=== PATIENT | female | born 1980 | race Caucasian/White ===

== ENCOUNTER 2019-04-01 22:40 | Inpatient (IN) | payer OTHER ==
[2019-04-01 23:27] LABS: ADD MAN DIFF? NO
[2019-04-01 23:28] LABS: BASOPHIL # 0.1 10^3/ul (0.0-0.1); BASOPHILS % 0.9 % (0.0-2.0); EOSINOPHILS # 0.1 10^3/ul (0.0-0.5); EOSINOPHILS % 1.9 % (0.0-7.0); HEMATOCRIT 40.9 % (37.0-47.0); HEMOGLOBIN 13.4 g/dl (12.0-16.0); LYMPHOCYTES # 1.5 10^3/ul (0.8-2.9); LYMPHOCYTES % 21.2 % (15.0-51.0); MEAN CORPUSCULAR HEMOGLOBIN 29.3 pg (29.0-33.0); MEAN CORPUSCULAR HGB CONC 32.8 g/dl (32.0-37.0); MEAN CORPUSCULAR VOLUME 89.3 fl (82.0-101.0); MEAN PLATELET VOLUME 8.9 fl (7.4-10.4); MONOCYTE # 0.7 10^3/ul (0.3-0.9); MONOCYTES % 10.7 % (0.0-11.0); NEUTROPHIL # 4.5 10^3/ul (1.6-7.5); NEUTROPHILS % 65.2 % (39.0-77.0); PLATELET COUNT 346 10^3/UL (140-415); RED BLOOD COUNT 4.58 10^6/ul (4.20-5.40); RED CELL DISTRIBUTION WIDTH 12.8 % (11.5-14.5)
[2019-04-01 23:28] LABS: WHITE BLOOD COUNT 6.9 10^3/ul (4.8-10.8)
[2019-04-01] MEDS: HYDROmorphONE 1 MG/ML SYG IV (23:29)
[2019-04-01] MEDS: ONDANSETRON 4 MG INJ IV (23:29)
[2019-04-01] MEDS: SOD CHLORIDE 0.9% 1,000 ML IV (23:29)
[2019-04-01 23:47] LABS: ALANINE AMINOTRANSFERASE 32 IU/L (13-69); ALKALINE PHOSPHATASE 75 IU/L (42-121); ANION GAP 8 (5-13); ASPARTATE AMINO TRANSFERASE 39 IU/L (15-46); BILIRUBIN,TOTAL 0.2 mg/dl (0.2-1.3); BLOOD UREA NITROGEN 20 mg/dl (7-20); CALCIUM 9.4 mg/dl (8.4-10.2); CARBON DIOXIDE 25 mmol/L (21-31); CHLORIDE 109 mmol/L (97-110); CREATININE 0.57 mg/dl (0.44-1.00); Estimated GFR > 60 mL/min (>60); GLUCOSE 93 mg/dl (70-220); LIPASE 128 U/L (23-300); POTASSIUM 4.4 mmol/L (3.5-5.1); SODIUM 142 mmol/L (135-144)
[2019-04-01 23:48] LABS: ALBUMIN 4.1 g/dl (3.3-4.9); ALBUMIN/GLOBULIN RATIO 1.17; BILIRUBIN,INDIRECT 0.2 mg/dl (0-1.1); TOTAL PROTEIN 7.6 g/dl (6.1-8.1)
[2019-04-01 23:49] LABS: ADD UMIC NO; INR 0.89; PROTIME 12.2 Sec (11.9-14.9); UR ASCORBIC ACID NEGATIVE (NEGATIVE); UR BILIRUBIN (Dip) NEGATIVE (NEGATIVE); UR BLOOD (Dip) NEGATIVE (NEGATIVE); UR CLARITY CLEAR (CLEAR); UR COLOR YELLOW (YELLOW); UR GLUCOSE (Dip) NEGATIVE (NEGATIVE); UR KETONES (Dip) NEGATIVE (NEGATIVE); UR LEUKOCYTE ESTERASE (Dip) NEGATIVE Leu/ul (NEGATIVE); UR NITRITE (Dip) NEGATIVE (NEGATIVE); UR SPECIFIC GRAVITY (Dip) 1.017 (1.003-1.030); UR TOTAL PROTEIN (Dip) NEGATIVE (NEGATIVE); UR UROBILINOGEN (Dip) NEGATIVE (NEGATIVE)
[2019-04-01 23:50] LABS: PARTIAL THROMBOPLASTIN TIME 29.3 Sec (23.0-35.0)
[2019-04-01 23:59] LABS: TROPONIN-I < 0.012 ng/ml (0.000-0.120)
[2019-04-02] MEDS: KETOROLAC 15 MG INJ IV ×2 (01:58→04:14)
[2019-04-02] MEDS ORDERED: HYDROCODONE/APAP (5/325) TAB PO (03:30)
[2019-04-02] MEDS ORDERED: ACETAMINOPHEN 325 MG TAB PO (04:00)
[2019-04-02] MEDS ORDERED: PIPER-TAZO 3.375 GM IV (PMX) 100 ML IVPB ×2 (04:00→06:00)
[2019-04-02] MEDS ORDERED: HYDROmorphONE 2 MG TAB PO (04:00)
[2019-04-02] MEDS ORDERED: DOCUSATE SODIUM 100 MG CAP PO (04:00)
[2019-04-02] MEDS: ONDANSETRON 4 MG INJ IV (04:09)
[2019-04-02] MEDS: morphine 2 MG INJ IV ×7 (04:09→20:55)
[2019-04-02] MEDS: HYDROmorphONE 0.5 MG/0.5 ML SYG IV (04:14)
[2019-04-02] MEDS: PIPER-TAZO 3.375 GM IV (PMX) 100 ML IVPB ×4 (05:00→23:36)
[2019-04-02] MEDS: DEXTROSE 5%-0.9% NACL 1,000 ML IV (05:00)
[2019-04-02] MEDS: FAMOTIDINE 20 MG INJ IV ×2 (05:00→20:53)
[2019-04-02] MEDS: HEPARIN 5,000 UNIT/1 ML VIAL SC ×3 (06:32→21:05)
[2019-04-02] MEDS ORDERED: BUPIVACAINE 0.25% (MPF) 30 ML INJ (12:58)
[2019-04-02] MEDS ORDERED: MIDAZOLAM 1 MG/ML 2 ML INJ (13:26)
[2019-04-02] MEDS ORDERED: SEVOFLURANE 15 MIN (13:26)
[2019-04-02] MEDS: NICOTINE (14 MG/24 HR) PATCH TRANSDERM (13:30)
[2019-04-02] MEDS ORDERED: ROCURONIUM 50 MG INJ (14:40)
[2019-04-02] MEDS ORDERED: ONDANSETRON 4 MG INJ (14:40)
[2019-04-02] MEDS ORDERED: LIDOCAINE 2% (SDV) 5 ML INJ (14:40)
[2019-04-02] MEDS ORDERED: GLYCOPYRROLATE 0.4 MG INJ (14:40)
[2019-04-02] MEDS ORDERED: NEOSTIGMINE 3 MG/3 ML SYRINGE (14:40)
[2019-04-02] MEDS ORDERED: PROPOFOL 20 ML (14:40)
[2019-04-02] MEDS ORDERED: ROPIVACAINE 0.5 % 30 ML VIAL (14:41)
[2019-04-02] MEDS ORDERED: ONDANSETRON 4 MG INJ IV ×2 (15:00→15:30)
[2019-04-02] MEDS ORDERED: KETOROLAC 30 MG INJ (15:01)
[2019-04-02] MEDS ORDERED: FENTAnyl 50 MCG/ML VIAL ×2 (15:13→15:23)
[2019-04-02] MEDS ORDERED: MEPERIDINE 25 MG INJ (15:14)
[2019-04-02] MEDS ORDERED: HYDROmorphONE 1 MG/5 ML IV SYRINGE IV ×3 (15:14→15:30)
[2019-04-02] MEDS ORDERED: DIPHENHYDRAMINE 50 MG INJ (15:23)
[2019-04-02] MEDS ORDERED: METOCLOPRAMIDE 10 MG INJ IV (15:30)
[2019-04-02] MEDS ORDERED: KETOROLAC 30 MG INJ IV (15:30)
[2019-04-02] MEDS ORDERED: hydrALAzine 20 MG INJ IV (15:30)
[2019-04-02] MEDS ORDERED: LABETALOL HCL 20MG INJ IV (15:30)
[2019-04-02] MEDS: FENTAnyl 50 MCG/ML VIAL IV (15:36)
[2019-04-02] MEDS: DIPHENHYDRAMINE 50 MG INJ IV (15:37)
[2019-04-02] MEDS: MEPERIDINE 25 MG INJ IV (15:37)
[2019-04-02] MEDS: D5W-0.45 NACL + KCL 20 MEQ 1,000 ML IV (16:38)
[2019-04-02] MEDS: NACL 0.9% 3 ML SYG IV (20:56)
[2019-04-02] MEDS: KETOROLAC 30 MG INJ IV (21:54)
[2019-04-03] MEDS: morphine 2 MG INJ IV ×5 (03:16→15:15)
[2019-04-03] MEDS: D5W-0.45 NACL + KCL 20 MEQ 1,000 ML IV ×2 (03:16→10:12)
[2019-04-03] MEDS: PIPER-TAZO 3.375 GM IV (PMX) 100 ML IVPB ×2 (05:13→12:10)
[2019-04-03] MEDS: HEPARIN 5,000 UNIT/1 ML VIAL SC ×2 (05:17→13:11)
[2019-04-03 05:44] LABS: ADD MAN DIFF? NO
[2019-04-03 05:58] LABS: WHITE BLOOD COUNT 7.4 10^3/ul (4.8-10.8)
[2019-04-03 05:58] LABS: BASOPHILS % 0.4 % (0.0-2.0); EOSINOPHILS # 0.1 10^3/ul (0.0-0.5); EOSINOPHILS % 1.5 % (0.0-7.0); HEMATOCRIT 35.8 % (37.0-47.0); HEMOGLOBIN 11.5 g/dl (12.0-16.0); LYMPHOCYTES # 2.2 10^3/ul (0.8-2.9); LYMPHOCYTES % 29.8 % (15.0-51.0); MEAN CORPUSCULAR HGB CONC 32.1 g/dl (32.0-37.0); MEAN CORPUSCULAR VOLUME 90.4 fl (82.0-101.0); MONOCYTE # 0.8 10^3/ul (0.3-0.9); MONOCYTES % 11.3 % (0.0-11.0); NEUTROPHIL # 4.2 10^3/ul (1.6-7.5); NEUTROPHILS % 56.7 % (39.0-77.0); PLATELET COUNT 290 10^3/UL (140-415); RED BLOOD COUNT 3.96 10^6/ul (4.20-5.40); RED CELL DISTRIBUTION WIDTH 12.9 % (11.5-14.5)
[2019-04-03 06:20] LABS: ALANINE AMINOTRANSFERASE 48 IU/L (13-69); ALBUMIN 3.1 g/dl (3.3-4.9); ALKALINE PHOSPHATASE 47 IU/L (42-121); ANION GAP 3 (5-13); ASPARTATE AMINO TRANSFERASE 39 IU/L (15-46); BILIRUBIN,INDIRECT 0.5 mg/dl (0-1.1); BILIRUBIN,TOTAL 0.5 mg/dl (0.2-1.3); BLOOD UREA NITROGEN 13 mg/dl (7-20); CALCIUM 8.6 mg/dl (8.4-10.2); CARBON DIOXIDE 26 mmol/L (21-31); CHLORIDE 108 mmol/L (97-110); Estimated GFR > 60 mL/min (>60); GLUCOSE 111 mg/dl (70-220); POTASSIUM 3.9 mmol/L (3.5-5.1); SODIUM 137 mmol/L (135-144); TOTAL PROTEIN 5.9 g/dl (6.1-8.1)
[2019-04-03 06:28] LABS: FREE THYROXINE INDEX (Calc) 2.47 ug/ml (0.65-3.89); T3 UPTAKE 38.6 % (23.5-40.5); T4 (THYROXINE) 6.4 ug/dl (5.5-11.0)
[2019-04-03 07:18] LABS: HEMOGLOBIN A1C 5.3 % (0-5.9)
[2019-04-03] MEDS: KETOROLAC 30 MG INJ IV ×2 (07:26→13:53)
[2019-04-03] MEDS: FAMOTIDINE 20 MG INJ IV (08:43)
[2019-04-03] MEDS: NICOTINE (14 MG/24 HR) PATCH TRANSDERM (08:44)
== END 2019-04-03 17:12 | disposition home or self-care (01) | DRG 419 ==
LOC: E/R 22:40 → 2NE 04-02 03:36
PROC: 0FT44ZZ Resection of Gallbladder, Percutaneous Endoscopic Approach (ICD-10-PCS; principal; 2019-04-02 13:30)
DX: K80.00 Calculus of gallbladder with acute cholecystitis without obstruction (principal); K76.0 Fatty (change of) liver, not elsewhere classified; I10 Essential (primary) hypertension; M54.5 Low back pain; F17.200 Nicotine dependence, unspecified, uncomplicated; Z90.710 Acquired absence of both cervix and uterus; Z86.010 Personal history of colon polyps
CPT/HCPCS: 36415; 76705; 80053; 81003; 81025; 83036; 83690; 84436; 84479; 84484; 85025; 85610; 85730; 86850; 86900; 86901; 88304; 93005; 96374; 96375; 99285-25